=== PATIENT | female | born 1955 | race Hispanic/Latino ===

== ENCOUNTER 2017-12-16 11:33 | Outpatient (CLI) | payer OTHER ==
--- NOTE | 2017-12-16 12:12 | RAD ---
ABDOMEN TWO VIEWS: History: Epigastric pain. FINDINGS: Supine and upright views of the abdomen obtained. Scattered stool and gas seen throughout the colon. Small bowel gas pattern is unremarkable. No free air or mass effect. Post cholecystectomy clips are n oted. IMPRESSION: Unremarkable bowel gas pattern. POS: [facility]
== END 2017-12-16 11:34 | disposition home or self-care (01) ==
LOC: MADRAD 11:33
PROVIDERS: ATTEND Nurse Practitioner Family
DX: K29.90 Gastroduodenitis, unspecified, without bleeding (principal); R10.13 Epigastric pain
CPT/HCPCS: 74019

== ENCOUNTER 2017-12-20 10:16 | Outpatient (CLI) | payer OTHER ==
--- NOTE | 2017-12-20 12:23 | ULT ---
ABDOMINAL ULTRASOUND: 12/20/2017 HISTORY: Epigastric and left upper quadrant abdominal pain for one month. Pain increases after eating. Histo ry of cholecystectomy 10 years ago. FINDINGS: The gallbladder is not visualized, consistent with the patient's reported history of a cholecystectom y. The common duct is normal in caliber and measures 0.3 cm, although it is difficult to visualize. No intrahepatic biliary ductal dilatation is appreciated. The liver, spleen, visualized portions of the pancreas, abdominal aorta, visualized portions of the I VC, and bilateral kidneys demonstrate a normal sonographic appearance. The right kidney measures 10. 2 cm in length, with the left kidney measuring 9.5 cm in length. IMPRESSION: Cholecystectomy. POS: [facility]
== END 2017-12-20 10:17 | disposition home or self-care (01) ==
LOC: MADULT 10:16
PROVIDERS: ATTEND Nurse Practitioner Family
DX: K29.90 Gastroduodenitis, unspecified, without bleeding (principal); R10.13 Epigastric pain; Z90.49 Acquired absence of other specified parts of digestive tract
CPT/HCPCS: 76700

== ENCOUNTER 2018-01-09 11:28 | Emergency (ER) | payer OTHER | END 2018-01-09 12:50 | disposition home or self-care (01) | LOC: MADERS 11:28 | DX: B34.9 Viral infection, unspecified (principal); I10 Essential (primary) hypertension; E78.00 Pure hypercholesterolemia, unspecified | CPT/HCPCS: 96372; J1040 ==

== ENCOUNTER 2018-10-10 11:31 | Emergency (ER) | payer OTHER ==
[2018-10-10] MEDS ORDERED: Ondansetron PF 4 MG/2 ML Vial ONE (12:03)
[2018-10-10] MEDS ORDERED: Dicyclomine 10 MG CAP ONE ×2 (12:19→12:22)
[2018-10-10 12:35] LABS: ALT (SGPT) 29 U/L (8-55); AST (SGOT) 25 U/L (5-34); Albumin 3.9 g/dL (3.4-4.8); Alkaline Phosphatase 68 U/L (40-150); Anion Gap 14 mmol/L (10-20); BUN (Urea Nitrogen) 10 mg/dL (9.8-20.1); Bilirubin, Total 0.4 mg/dL (0.2-1.2); Calc. Creatinine Clearance 0 mL/min (70-130); Calcium 9.5 mg/dL (7.8-10.44); Carbon Dioxide 23 mmol/L (23-31); Chloride 103 mmol/L (98-107); Estimated GFR-MDRD 80; Globulin 3.8 g/dL (2.4-3.5); Glucose 102 mg/dL (80-115); Potassium 3.6 mmol/L (3.5-5.1); Protein, Total 7.7 g/dL (6.0-8.3); Sodium 136 mmol/L (136-145)
[2018-10-10 12:36] LABS: Hemoglobin 13.9 g/dL (12.0-16.0); Mean Corpuscular HGB CONC 33.6 g/dL (32.0-36.0); Mean Corpuscular Hemoglobin 31.8 pg (27.0-31.0); Mean Corpuscular Volume 94.6 fL (78.0-98.0); Mean Platelet Volume 6.8 fL (7.4-10.4); Platelet Count 276 thou/uL (130-400); RBC Distribution Width 11.5 % (11.5-14.5); Red Blood Cell (RBC) Count 4.37 mill/uL (4.20-5.40); White Blood Cell (WBC) Count 5.4 thou/uL (4.8-10.8)
[2018-10-10 12:51] LABS: MDiff Complete? YES; Manual Diff?? YES
[2018-10-10 12:52] LABS: Anisocytosis SLIGHT = 6-15 cells (100X) (0-5/hpf); Band 6 % (5-11); Lymphocytes 31 % (21-51); Monocytes 14 % (0-10); Neutrophil 49 % (42-75); PLT Morphology Comment Appears Adequate
== END 2018-10-10 13:14 | disposition home or self-care (01) ==
LOC: MADERS 11:31
DX: K52.9 Noninfective gastroenteritis and colitis, unspecified (principal); I10 Essential (primary) hypertension; E78.00 Pure hypercholesterolemia, unspecified; Z79.899 Other long term (current) drug therapy; Z79.82 Long term (current) use of aspirin
CPT/HCPCS: 80053; 85025; 96361; 96374; J2405

== ENCOUNTER 2019-08-30 13:22 | Outpatient (CLI) | payer OTHER ==
--- NOTE | 2019-08-30 14:04 | RAD ---
RIGHT HAND RADIOGRAPHS 3 VIEWS: Date: 08/30/19 PROVIDED CLINICAL HISTORY: Pain status post injury. FINDINGS: No evidence for fracture or other acute osseous abnormality. If there is persistent clinical concern, conservative management and follow-up imaging are advised. IMPRESSION: As above. POS: [facility]
== END 2019-08-30 13:23 | disposition home or self-care (01) ==
LOC: MADRAD 13:22
PROVIDERS: ATTEND Nurse Practitioner Family
DX: S60.221A Contusion of right hand, initial encounter (principal); M25.541 Pain in joints of right hand

== ENCOUNTER 2021-05-22 12:18 | Outpatient (CLI) | payer MEDICARE | END 2021-05-22 12:19 | disposition home or self-care (01) | LOC: MADRAD 12:18 | PROVIDERS: ATTEND Nurse Practitioner Family | DX: M25.551 Pain in right hip (principal); M54.31 Sciatica, right side ==